=== PATIENT | male | born 1960 | race Two or more races ===

== ENCOUNTER 2017-10-26 15:20 | Emergency (ER) | payer MEDICAID ==
[~2017-10-26] VITALS: Ht 172.7 cm; Wt 75.3 kg
[2017-10-26] MEDS ORDERED: ALBUTEROL/IPRATROPIUM 2.5MG/0.5MG, 3 ML ONE (15:57)
[2017-10-26] MEDS ORDERED: ALBUTEROL/IPRATROPIUM 2.5MG/0.5MG, 3 ML NPPB ONE (16:00)
[2017-10-26] MEDS ORDERED: KETOROLAC 30 MG/1 ML IM ONE (16:00)
[2017-10-26] MEDS ORDERED: KETOROLAC 30 MG/1 ML ONE (16:08)
[2017-10-26 16:19] LABS: ALANINE AMINOTRANSFERASE 26 U/L (12-78); ALBUMIN 3.1 g/dL (3.4-5.0); ANION GAP 8 mmol/L (5-15); CHLORIDE 109 mmol/L (98-107)
[2017-10-26 16:22] LABS: ALKALINE PHOSPHATASE 122 U/L (45-117); BILIRUBIN,TOTAL 1.4 mg/dL (0.2-1.0); CREATININE 0.81 mg/dL (0.7-1.3); TOTAL PROTEIN 7.1 g/dL (6.4-8.2)
[2017-10-26 16:40] LABS: BASOPHILS # (AUTO) 0.01 x10^3/uL (0-0.1); BASOPHILS % (AUTO) 0 % (0-1); EOSINOPHILS # (AUTO) 0.21 x10^3/uL (0-0.4); EOSINOPHILS % (AUTO) 5 % (1-7); LYMPHOCYTES # (AUTO) 0.97 x10^3/uL (1-3.4); LYMPHOCYTES % (AUTO) 25 % (22-44); MD SCAN; MEAN CORPUSCULAR HEMOGLOBIN 32.8 pg (27.5-34.5); MEAN CORPUSCULAR HGB CONC 35.2 g/dL (33.2-36.2); MEAN CORPUSCULAR VOLUME 93.1 fL (81-97); MEAN PLATELET VOLUME 8.2 fL (7.4-10.4); MONOCYTES # (AUTO) 0.48 x10^3/uL (0.2-0.8); MONOCYTES % (AUTO) 12 % (2-9); NEUTROPHILS # (AUTO) 2.28 x10^3/uL (1.8-6.8); NEUTROPHILS % (AUTO) 58 % (42-75); PLATELET COUNT 99 x10^3/uL (130-400); RED BLOOD COUNT 4.31 x10^6/uL (4.38-5.82); RED CELL DISTRIBUTION WIDTH 13.8 % (9.4-14.8)
[2017-10-26] MEDS ORDERED: CEFTRIAXONE PMX 1GM/50ML 50 ML ONE (16:51)
[2017-10-26] MEDS ORDERED: CEFTRIAXONE PMX 1GM/50ML 50 ML IV ONE (17:00)
[2017-10-26] MEDS ORDERED: KETOROLAC 30 MG/1 ML IVPush ONE (17:00)
[2017-10-26 18:13] VITALS: BP 124/57
== END 2017-10-26 18:15 | disposition home or self-care (01) ==
LOC: ED 16:22
DX: J15.9 Unspecified bacterial pneumonia (principal); Z45.2 Encounter for adjustment and management of vascular access device
CPT/HCPCS: 36415; 71046; 80053; 83605; 85025; 87040; 93005; 94640; 96365; 96375; 99285; J0696; J1885; J7620

== ENCOUNTER 2017-12-24 10:38 | Emergency (ER) | payer MEDICAID ==
[~2017-12-24] VITALS: Ht 162.6 cm; Wt 73.8 kg
[2017-12-24 10:53] VITALS: BP 161/75
== END 2017-12-24 12:12 | disposition home or self-care (01) ==
LOC: ED 12:00
DX: B34.9 Viral infection, unspecified (principal); I10 Essential (primary) hypertension
CPT/HCPCS: 71046; 93005; 99284